=== PATIENT | male | born 1935 | race Caucasian/White ===

== ENCOUNTER 2016-09-20 10:37 | Outpatient (CLI) | payer MEDICARE, OTHER ==
[~2016-09-20] VITALS: Ht 160 cm; Wt 79.5 kg
[~2016-09-20 10:37] MED LIST: AMLO-145 PO; ASPI-664 PO; ATOR20TA38 PO; CHOL20002 PO; GABA300C16 PO; MULT-860 PO; NEBI5TAB9 PO; OXYB10TA6 PO; SITA1TAB3 PO; VALS1TAB82 PO
[2016-09-20 10:50] VITALS: BP 141/81; PULSE 69; RESP 16; Ht 160 cm; Wt 79.5 kg
--- NOTE | 2016-09-20 12:16 | CONS ---
Date/Time of Note Date/Time of Note DATE: 09/20/16 TIME: 11:25 Assessment/Plan Assessment/Plan Additional Assessment/Plan [facility] SUBSEQUENT OUTPATIENT CONSULTATION NOTE ASSESSMENT AND PLAN: A very-pleasant 81-year-old gentleman with liver mass in segment 2/3 bordering segment 4, increased in size from 3.4 to 4.9 cm in the course of approximately 11 months, and associated elevated AFP to 32 as of . 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 Had a long discussion with patient and explained reasoning behind my recommendations including surgical resection as first intervention (patient still adamantly refusing colonoscopy despite sig time spent on rational and benefits of repeat colonoscopy in this setting). Described the operation in detain including risks , benefits and alternatives and obtained patient's consent for laparoscopic, possible open partial hepatectomy. Answered all questions. The patient appeared to understand and agreed with the proposed plan of care. With above assessment, I've recommended the followin. Pre-op history and physical 2. Laparoscopic, possible open, L lateral hepatectomy with intraoperative US and possible biopsy Thank you very much for having me involved in the care of this very pleasant gentleman and I'm certainly his wonderful family. I will continue to follow him along with you as an outpatient and will be available to answer any questions at area code [phone]. Disclaimer: Inadvertent spelling and grammatical errors are likely due to EHR/ dictation software use and do not reflect on the quality of delivered patient care. PLACE [facility] SERVICE: [facility] ([facility]) at [facility] DATE OF CONSULTATION: 11/20/2016 UPDATED CLINICAL SUMMARY: The patient is a very pleasant 81-year-old gentleman , familiar to me from his initial visit with us at [facility] on 11/03/15, with multiple past medical history significant for fatty liver dz, intracerebral hemorrhage and old GA, s/p CABG, presenting with what appeared to be a surgically resectable L lateral segment 3.3 cm lesion in the liver in October 2015 , concerning for malignancy. Patient declined surgery at that time and was lost to follow up until recently. He also adamantly refused to undergo repeat colonoscopy as part of his recommended work up. Comorbidities: 1. BPH w/o urinary obstruction 2. Cardiac murmurs (systolic) 3. Decreased libido 4. DMII, w/ neuropathy 5. Fatty liver dz 6. Goiter 7. Hearing loss 8. Hyperlipidemia 9. HTN 10. Impotence 11. Intracerebral hemorrhage, 2008 12. Carotid artery occlusion w/o infarct 2001 vs. 2008 (? unclear in documentation) 13. GA/CABG 2008 14. Osteoporosis 15. Peripheral vascular dz/intermittent claudication 16. Sciatica 17. Syncope/collapse 18. Trans cereb ischemia 19. 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 HIV neg 21. Borderline obese (BMI 30.3) 22. CABG 2001 23. Prostate surgery 2006 (Dr. Santiago) 24. Cataract surgery HISTORY OF PRESENT ILLNESS: The patient is a very pleasant 81-year-old gentleman, familiar to me from his initial visit with us at [facility] on 11/03/15, with multiple past medical history significant for fatty liver dz, intracerebral hemorrhage and old GA, s/p CABG, presenting with what appeared to be a surgically resectable L lateral segment 3.3 cm lesion in the liver in October 2015, concerning for malignancy. Patient declined surgery at that time and was lost to follow up until recently. He also adamantly refused to undergo repeat colonoscopy as part of his recommended work up. After significant effort from my office, we were able to reconnect with the patient and ordered a follow up liver CT which showed above findings. During his visit with us today, patient had no major complaints. ALLERGIES: NKDA MEDICATIONS Carefully reviewed in the chart SOCIAL HISTORY: The patient lives with his partner whom he has been with in a bed bug exterminator monogamous relationship. No children. - Tob; - ETOH; - IVDU FAMILY HISTORY: Father 64, [place], mother 71, DMII & breast ca; brother 81 DII, [place]. There are no other significant medical, surgical or oncologic issues in the family as reported by the patient or reflected in the chart. REVIEW OF SYSTEMS: Other than above mentioned, there are no other major pertinent positives or pertinent negatives in an otherwise complete 14 point review of systems. PHYSICAL EXAMINATION GENERAL: The patient appears to be a very pleasant gentleman of non- descent sitting in a chair, appearing stated age, very borderline obese and otherwise in no acute distress. BMI: 31.1 (previously 30.08 October 2015) VITAL SIGNS: AVSS (please also see below) HEENT: Normocephalic and atraumatic. Extraocular muscles and hearing are grossly intact bilaterally and symmetrically. Sclerae are nonicteric. Oral cavity is clear; oral mucosa appear to be pink and moist. Dentition: fair. NECK: Supple. There is no lymphadenopathy or JVD. There is no submental, submandibular or supraclavicular lymphadenopathy. CHEST: Rises symmetrically with each breath; patient is breathing comfortably. There are no audible wheezes, rales or rhonchi on the gross exam. HEART: Pulse is regular and palpable on the right wrist. Capillary refill is normal. Carotid pulses are palpable bilaterally and symmetrically in the neck. EXTREMITIES: Lower extremities contain no pitting edema around the ankles bilaterally and symmetrically. ABDOMEN: Abdomen is soft, nontender and nondistended. No evidence of ascites, organomegaly, caput medusae, engorged subcutaneous veins, or other abnormalities. There are no peritoneal signs or guarding. SKIN: Appears to be pink and feels warm to touch. NEUROLOGIC: Awake, alert, and follows commands appropriately. LABORATORY DATA: See office chart. 08/16/16: AFP 32, CEA 0.9; CA 19-9: 4; CA 125 : 17; Cr 1.3; T Bili: 1.6; 09/20/15: Cr 1.3, LFT's nl, plt 378 IMAGING: See electronic chart. Please note that I've personally reviewed all pertinent available images and I agree in general with their overall reported findings. CT Abd/pelvis 08/24/16: 4.9 x 5.3 mass, compared to 3.4 x 3.1 cm solid mass left lat seg (seg 2); concerning for malignancy MRI 10/11/15: 3.3 cm solid mass left lat seg (seg 2); concerning for malignancy, likely metastatic per report. Does not have the classic HCC pattern; L adrenal gland adenoma noted 10mm. Consultation Date/Type/Reason Admit Date/Time Initial Consult Date Exam/Review of Systems Vital Signs Vitals Vital Signs Date Time Temp Pulse Resp B/P Pulse Ox O2 Delivery O2 Flow Rate FiO2 09/20/16 10:50 98.0 69 16 141/81 93 Room Air EFREN CORTÉS M.D. September 20, 2016 12:16
== END 2016-09-20 16:52 | disposition home or self-care (01) ==
LOC: HPC 10:37
PROVIDERS: ATTEND Transplant Surgery
DX: K76.9 Liver disease, unspecified (principal); R16.0 Hepatomegaly, not elsewhere classified; K76.0 Fatty (change of) liver, not elsewhere classified; I10 Essential (primary) hypertension; E78.5 Hyperlipidemia, unspecified; E11.40 Type 2 diabetes mellitus with diabetic neuropathy, unspecified; Z79.84 Long term (current) use of oral hypoglycemic drugs; E66.9 Obesity, unspecified; Z68.31 Body mass index [BMI] 31.0-31.9, adult; M81.0 Age-related osteoporosis without current pathological fracture; Z86.73 Personal history of transient ischemic attack (TIA), and cerebral infarction without residual deficits; I25.2 Old myocardial infarction; Z95.1 Presence of aortocoronary bypass graft
CPT/HCPCS: G0463

== ENCOUNTER 2016-10-24 05:15 | Inpatient (IN) | payer MEDICARE, OTHER ==
[~2016-10-24] VITALS: Ht 157.5 cm; Wt 76.6 kg
[2016-10-24] VITALS (39 sets, daily range): BP systolic 81–136; BP diastolic 53–79; PULSE 65–100; RESP 12–21; Ht 157.5 cm; Wt 76.6 kg
[2016-10-24] MEDS ORDERED: BUPIVACAINE 0.25%/EPI (SDV) 30 ML INJ ONE (06:49)
[2016-10-24] MEDS ORDERED: PIPER-TAZO 3.375 GM IV (PMX) 100 ML IVPB SCH (07:00)
[2016-10-24] MEDS ORDERED: D5W-0.45 NACL + KCL 20 MEQ 1,000 ML IV SCH (07:00)
--- NOTE | 2016-10-24 07:27 | HPN ---
Date/Time of Note Date/Time of Note DATE: 10/24/16 TIME: 07:26 Interval H&P Admission Note Pt. seen H&P reviewed: No system changes Pt. seen H&P reviewed. No system changes (I attest that I have seen and examined the patient and reviewed the operation in detail, as well as its risks , benefits and alternatives of the operation). I attest that I have seen and examined the patient and reviewed in detail the operation, and its associated risks, benefits and alternative. I have answered all the patient's questions to the best of my ability and the patient wishes to proceed. Please refer to rest of electronic medical record for additional updates. EFREN CORTÉS M.D. Oct 24, 2016 07:27
[2016-10-24] MEDS ORDERED: ETOMIDATE 20 MG INJ ONE (07:34)
[2016-10-24] MEDS ORDERED: SUCCINYLCHOLINE CHLORIDE 100 MG/5 ML SYG IV ONE (07:34)
[2016-10-24] MEDS ORDERED: LIDOCAINE 2% (SDV) 5 ML INJ ONE (07:34)
[2016-10-24] MEDS ORDERED: MIDAZOLAM 1 MG/ML 2 ML INJ ONE (07:35)
[2016-10-24] MEDS ORDERED: FENTAnyl 50 MCG/ML VIAL ONE (07:35)
[2016-10-24] MEDS ORDERED: PHENYLephrine (100 MCG/ML) 5ML SYG ONE (07:46)
[2016-10-24] MEDS ORDERED: ONDANSETRON 4 MG INJ ONE (08:06)
[2016-10-24] MEDS ORDERED: EPHEDrine SULFATE 50 MG/5 ML SYG ONE (08:06)
[2016-10-24] MEDS ORDERED: METOCLOPRAMIDE 10 MG INJ ONE (08:06)
[2016-10-24] MEDS ORDERED: HYDROmorphONE 2 MG/ML SYG ONE (08:41)
[2016-10-24] MEDS ORDERED: ROCURONIUM 50 MG INJ ONE (08:42)
[2016-10-24] MEDS ORDERED: PROPOFOL 20 ML ONE (08:42)
[2016-10-24] MEDS ORDERED: MEPERIDINE 25 MG INJ IV PRN (09:00)
[2016-10-24] MEDS ORDERED: DIPHENHYDRAMINE 50 MG INJ IV PRN (09:00)
[2016-10-24] MEDS ORDERED: FENTAnyl 50 MCG/ML VIAL IV PRN (09:00)
[2016-10-24] MEDS ORDERED: ONDANSETRON 4 MG INJ IV PRN (09:00)
[2016-10-24] MEDS ORDERED: PROCHLORPERAZINE 10 MG INJ IV PRN (09:00)
[2016-10-24] MEDS ORDERED: HYDROmorphONE (0.2 MG/ML) 10ML SYG IV PRN ×2 (09:00)
[2016-10-24] MEDS ORDERED: LABETALOL HCL 20MG INJ IV PRN (09:00)
[2016-10-24] MEDS ORDERED: EPHEDrine SULFATE 50 MG/5 ML SYG IV PRN (09:00)
[2016-10-24] MEDS ORDERED: hydrALAzine 20 MG INJ IV PRN (09:00)
[2016-10-24] MEDS ORDERED: INSULIN ASPART [NOVOLOG] 3 ML PEN SC ONE (10:00)
[2016-10-24] MEDS ORDERED: GLYCOPYRROLATE 0.4 MG INJ ONE (10:20)
[2016-10-24] MEDS ORDERED: NEOSTIGMINE 3 MG/3 ML SYRINGE ONE (10:20)
[2016-10-24] MEDS ORDERED: ROPIVACAINE 0.2% 20 ML VIAL ONE (10:26)
[2016-10-24] MEDS ORDERED: ESMOLOL 10 ML ONE (10:42)
[2016-10-24] MEDS ORDERED: DEXTROSE 50% 50 ML SYRINGE IV PRN ×2 (11:00)
[2016-10-24] MEDS ORDERED: GLUCOSE GEL 15 GRAM TUBE PO PRN ×2 (11:00)
[2016-10-24] MEDS ORDERED: BISACODYL 10 MG SUPP PR PRN (11:00)
[2016-10-24] MEDS ORDERED: NA PHOSPHATE/BIPHOS 133 ML ENEMA PR PRN (11:00)
[2016-10-24] MEDS ORDERED: GLUCAGON 1 MG INJ IM PRN (11:00)
[2016-10-24] MEDS ORDERED: HYDROCODONE/APAP (5/325) TAB PO PRN (11:00)
[2016-10-24] MEDS ORDERED: HYDROmorphONE 1 MG/ML SYG IV PRN (11:00)
[2016-10-24] MEDS ORDERED: GLUCOSE GEL 15 GRAM TUBE BUCCAL PRN (11:00)
[2016-10-24] MEDS ORDERED: DOCUSATE SODIUM 100 MG CAP PO PRN (11:00)
[2016-10-24 11:39] LABS: ADD SCAN DIFF NO
--- NOTE | 2016-10-24 11:43 | OPR ---
Date/Time of Note Date/Time of Note DATE: 10/24/16 TIME: 11:43 Operative Report Operative\Procedure Findings [facility] INPATIENT OPERATIVE NOTE PLACE OF SERVICE: [facility] DATE OF SURGERY: 10/24/2016 PREOPERATIVE DIAGNOSIS: 1. Liver mass in segment 2/3 bordering segment 4, increased in size from 3.4 to 4.9 cm in the course of approximately 11 months, and associated elevated AFP to 32 as of 08/16/16, all concerning for hepatocellular carcinoma 2. Cardiac murmurs (systolic) 3. Decreased libido 4. DMII, w/ neuropathy 5. Fatty liver dz 6. Goiter 7. Hearing loss 8. Hyperlipidemia 9. HTN 10. Impotence 11. Intracerebral hemorrhage, 2008 12. Carotid artery occlusion w/o infarct 2001 vs. 2008 (? unclear in documentation) 13. MS/CABG 2008 14. Osteoporosis 15. Peripheral vascular dz/intermittent claudication 16. Sciatica 17. Syncope/collapse 18. Trans cereb ischemia 19. 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 HIV neg 21. Borderline obese (BMI 30.3) 22. CABG 2001 23. Prostate surgery 2006 (Dr. Santiago) 24. Cataract surgery 25. BPH w/o urinary obstruction POSTOPERATIVE DIAGNOSIS: 1. Liver mass in segment 2/3 bordering segment 4, increased in size from 3.4 to 4.9 cm in the course of approximately 11 months, and associated elevated AFP to 32 as of 08/16/16, all concerning for hepatocellular carcinoma 2. Cardiac murmurs (systolic) 3. Decreased libido 4. DMII, w/ neuropathy 5. Fatty liver dz 6. Goiter 7. Hearing loss 8. Hyperlipidemia 9. HTN 10. Impotence 11. Intracerebral hemorrhage, 2008 12. Carotid artery occlusion w/o infarct 2001 vs. 2008 (? unclear in documentation) 13. MS/CABG 2008 14. Osteoporosis 15. Peripheral vascular dz/intermittent claudication 16. Sciatica 17. Syncope/collapse 18. Trans cereb ischemia 19. 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 HIV neg 21. Borderline obese (BMI 30.3) 22. CABG 2001 23. Prostate surgery 2006 (Dr. Santiago) 24. Cataract surgery 25. BPH w/o urinary obstruction OPERATION: 1. Laparoscopic, hand-assisted partial hepatectomy with removal of part of segment 4B and removal of segments 2 and 3 2. Intraoperative ultrasound of the liver SURGEON: Efren Cortés M.D. JUMPBASTING FACING BASTER: ALEXANDER Springer ANESTHESIA: General endotracheal tube anesthesia ANESTHESIOLOGIST: Clay Hare M.D. 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 With above assessment, I've recommended the followin. Pre-op history and physical 2. Laparoscopic, possible open, L lateral hepatectomy with intraoperative US and possible biopsy Thank you very much for having me involved in the care of this very pleasant gentleman and I'm certainly his wonderful family. I will continue to follow him along with you as an outpatient and will be available to answer any questions at [facility] code [phone]. Disclaimer: Inadvertent spelling and grammatical errors are likely due to EHR/ dictation software use and do not reflect on the quality of delivered patient care. PLACE OF SERVICE: [facility] ([facility]) at [facility] DATE OF CONSULTATION: 11/20/2016 UPDATED CLINICAL SUMMARY: The patient is a very pleasant 81-year-old gentleman , familiar to me from his initial visit with us at [facility] on 11/03/15, with multiple past medical history significant for fatty liver dz, intracerebral hemorrhage and old MS, s/p CABG, presenting with what appeared to be a surgically resectable L lateral segment 3.3 cm lesion in the liver in October 2015 , concerning for malignancy. Patient declined surgery at that time and was lost to follow up until recently. He also adamantly refused to undergo repeat colonoscopy as part of his recommended work up. Comorbidities: 1. BPH w/o urinary obstruction 2. Cardiac murmurs (systolic) 3. Decreased libido 4. DMII, w/ neuropathy 5. Fatty liver dz 6. Goiter 7. Hearing loss 8. Hyperlipidemia 9. HTN 10. Impotence 11. Intracerebral hemorrhage, 2008 12. Carotid artery occlusion w/o infarct 2001 vs. 2008 (? unclear in documentation) 13. MS/CABG 2008 14. Osteoporosis 15. Peripheral vascular dz/intermittent claudication 16. Sciatica 17. Syncope/collapse 18. Trans cereb ischemia 19. 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 HIV neg 21. Borderline obese (BMI 30.3) 22. CABG 2001 23. Prostate surgery 2006 (Dr. Santiago) 24. Cataract surgery BRIEF HISTORY: The patient is a very pleasant 81-year-old gentleman with liver mass in segment 2/3 bordering segment 4, increased in size from 3.4 to 4.9 cm in the course of approximately 11 months, and associated elevated AFP to 32 as of 08/16/16. 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 We had a long discussion with patient and explained the reasoning behind my recommendations including surgical resection as first intervention (patient still adamantly refusing colonoscopy despite sig time spent on rational and benefits of repeat colonoscopy in this setting). Described the operation in detain including risks , benefits and alternatives and obtained patient's consent for laparoscopic, possible open partial hepatectomy. Answered all questions. The patient appeared to understand and agreed with the proposed plan of care. For a detailed report of my consultation with patient and family, please refer to my separate consultation note. STATEMENT OF THE INFORMED CONSENT: The patient and family (patient's roommate was present during our initial discussion in October 2015 but not present in our subsequent discussion in September 2016) appeared to understand the risks of the operation to include, but not be limited to risk of postoperative pain and scar tissue, possible infection or bleeding requiring other interventions such as opening the wound, placement of drainage catheters, or other operative interventions; possible injury to surrounding to structures including bowel, bladder, bile duct, or blood vessels, or solid organs such as liver, kidney, or pancreas requiring other interventions or procedures; possible leakage of bile from cut surface of the liver or suture/staple lines causing significant increase in morbidity and mortality and requiring multiple interventions including but not limited to, placement of drainage catheters, imaging studies, as well as operative interventions; possible other source of sepsis such as urinary tract infections or pneumonias, or other sources of potentially life threatening problems such as deep venous thrombus formation causing pulmonary embolism, myocardial arrhythmias and infarctions, and even . We discussed the implications of having a splenectomy in the potential increased risk of complications from infection with encapsulated organisms and the steps which we would take to alleviate those (vaccinations). We also briefly discussed the potential need to receive blood products and their potential complications of blood transfusion reactions, transmission of infections, or other complications. After careful consideration of all their options, the patient and family appeared to understand and wished to proceed with surgery. DESCRIPTION OF PROCEDURE: After obtaining informed consent, the patient was brought into the operating room and was placed in a normal supine position, where successful general endotracheal tube anesthesia was performed. Intravenous access was already in place and intravenous antimicrobials had been appropriately chosen and dosed prior to the operation. The patient's abdominal skin was prepped and draped from the nipple line down to the level of the upper thighs in the usual sterile fashion. We then called a surgical time-out where the patient's identification, date of , nature of the operation, allergies , presence of intravenous antimicrobials, presence of needed equipment, and any other concerns were reviewed and agreed upon by all members of the operating room team. We then started the operation by placing a 5 mm skin incision in the left midclavicular subcostal line and placed a 5 mm [employer] trocar into the peritoneal space visualizing all the layers of the abdominal wall as we entered using direct entry technique. Note that there was no indication of any injury to underlying structures using this technique. We insufflated the abdominal cavity to a maximum pressure of 15 mmHg. We noted no injury to underlying structures. No evidence of metastatic disease present. Liver appeared to be healthy. We then placed another 5 mm trocar in the anterior axillary line on the left mid quadrants and a 12 mm trocar in between the subxiphoid area and the umbilicus in the midline, all under direct visualization and after injection of the sinus with quarter percent Marcaine with epinephrine. Without trochars in place, we had excellent visualization and access to the abdominal cavity. We then inspected the abdominal cavity again to make sure that there is no obvious evidence of metastatic disease. None was found. We then looked briefly with the ultrasound to make sure there are no obvious lesions on the right side of the liver (none were found). We had to take down the falciform ligament in order to do a formal ultrasound of the liver, and for this reason we used cautery to take down this ligament and create enough room for doing the ultrasound. Note that the left lateral coronal ligaments was also incised using cautery and this way, we completely mobilized the left lateral lobe of the liver. We then performed an intraoperative ultrasound of the liver. Intraoperative ultrasound of the liver: The following segments were visualized, and there were no lesions that were concerning for malignant disease in any of them except for when mentioned: Caudate lobe: No lesion. Segment 2: No lesion. Segment 3: Approximately 4-1/2 cm lesion that was bordering segment 3 and segment 4B with approximately 2 cm distance between the most medial border of the lesion and the course of the middle hepatic vein. Segment 4: No lesion in segment 4A and previously mentioned lesion in segment 4B. Segment 5: No lesion. Segment 6: No lesion. Segment 7: No lesion. Segment 8: No lesion. We also noted antegrade flow through the portal vein on the left and right as well as the hepatic artery on the left and right and also antegrade flow through the middle right and left hepatic veins. Biliary system was not dilated. We marked the course of the middle hepatic vein using ultrasound guidance with cautery on the surface of the liver and also marked the borders of the lesion (medial side). With this information, and given the size of the left lateral lobe of the liver , I decided to maximize the degree of safety of the operation by placing a GelPort device as follows. We created a 9 cm skin incision in the left upper quadrant subcostal area using scalpel to go through the skin and cautery to go through subcutaneous fat and fascia and then placed a GelPort device device in order to perform the laparoscopic hand-assisted operation. With our instruments and GelPort in place, we again had excellent visualization and access to the left upper quadrant. I could feel the lesion in the left lobe of the liver. This was approximately 4-5 cm in size. The rest of the liver felt pliable and no obvious signs of cirrhosis were found. The amount of liver tissue that we had to go through was reasonably thin enough that we could use a stapler to accomplish our goals. I therefore very carefully introduced a vascular (white) load of the 60 mm [employer] flex stapler and used to transect through the plane between the course of the middle hepatic vein and the medial aspect of the lesion, keeping approximately a 1-1-1/2 cm margin on the tumor side and using for loads of the the vascular (white) [employer] stapler going across the portal pedicle vessels and also the left hepatic vein without any difficulty and without any uncontrolled blood loss. The stapler fired without any technical difficulty during each of the firings and the staple rows were nice and plan nurse. Hemostasis and bile stasis was assured. Specimen was then delivered out through the HandPort with the wound protected. We did not have to use a retrieval bag and there was no rupture of the capsule of the liver. I then marked the specimen in our usual fashion ( short suture marking superior border, long suture marking lateral border, and double suture jacobs the medial border of interest). I checked the margin on the specimen using the ultrasound and I was satisfied that there was normal parenchyma around the tumor. We also had our pathologist do a gross examination of the margin and the lesion appeared to be sufficiently away from the closest margin by at least a few millimeters. Specimen was sent for permanent sections. We then ensured adequate hemostasis and there was no leakage of bile or blood from the staple lines. We then removed all our equipment from the abdominal cavity including the pneumoperitoneum and closed the 12 mm port site using a [id number] 0 Vicryl suture on a UR 6 needle and checked and the closure from inside, followed by closing the 9 cm hand port incision in layers using #1 running PDS suture and then washing the wounds with copious amounts of normal saline and reapproximating the skin using 4-0 Monocryl suture. Light dressing was then applied. At the end of the operation, both the sponge count and needle count were reportedly correct x2. The patient tolerated the procedure without any reported complications. ESTIMATED BLOOD LOSS: 30 mL BLOOD OR BLOOD PRODUCT TRANSFUSIONS: None to my knowledge. SPECIMENS: Left partial hepatectomy (part of segment 4B, and segments 2 and 3) COMPLICATIONS: None DISPOSITION: Recovery area. Disclaimer: Inadvertent spelling and grammatical errors are likely due to EHR/ dictation software use and do not reflect on the quality of delivered patient care. Also, please note that the electronic time recorded on this node does not necessarily reflect the actual time of the visit. EFREN CORTÉS M.D. Oct 24, 2016 11:43
[2016-10-24 11:44] LABS: BASOPHILS % 0.3 % (0.0-2.0); EOSINOPHILS % 0.2 % (0.0-7.0); HEMATOCRIT 38.3 % (42.0-52.0); LYMPHOCYTES # 1.1 10^3/ul (0.8-2.9); LYMPHOCYTES % 10.4 % (15.0-51.0); MEAN CORPUSCULAR HEMOGLOBIN 32.3 pg (29.0-33.0); MEAN CORPUSCULAR HGB CONC 36.6 g/dl (32.0-37.0); MEAN CORPUSCULAR VOLUME 88.2 fl (82.0-101.0); MEAN PLATELET VOLUME 9.4 fl (7.4-10.4); MONOCYTE # 0.8 10^3/ul (0.3-0.9); MONOCYTES % 7.7 % (0.0-11.0); NEUTROPHIL # 8.5 10^3/ul (1.6-7.5); NEUTROPHILS % 80.8 % (39.0-77.0); PLATELET COUNT 254 10^3/UL (140-415); RED BLOOD COUNT 4.34 10^6/ul (4.70-6.10); RED CELL DISTRIBUTION WIDTH 12.7 % (11.5-14.5); WHITE BLOOD COUNT 10.5 10^3/ul (4.8-10.8)
[2016-10-24 12:04] LABS: ALBUMIN 4.4 g/dl (3.3-4.9); ALBUMIN/GLOBULIN RATIO 1.57; BILIRUBIN,INDIRECT 1.2 mg/dl (0-1.1); BILIRUBIN,TOTAL 1.2 mg/dl (0.2-1.3); TOTAL PROTEIN 7.2 g/dl (6.1-8.1)
[2016-10-24 12:05] LABS: INR 0.98; MAGNESIUM 1.3 mg/dl (1.7-2.5); PHOSPHORUS 4.2 mg/dl (2.5-4.9)
[2016-10-24 12:06] LABS: PARTIAL THROMBOPLASTIN TIME 26.4 Sec (25.0-35.0)
[2016-10-24 12:07] LABS: CALCIUM 9.6 mg/dl (8.4-10.2); CREATININE 1.11 mg/dl (0.61-1.24); POTASSIUM 3.6 mmol/L (3.5-5.1)
[2016-10-24] MEDS: D5W-0.45 NACL + KCL 20 MEQ 1,000 ML IV SCH ×2 (15:39→20:57)
--- NOTE | 2016-10-24 18:54 | CONS ---
Date/Time of Note Date/Time of Note DATE: 10/24/16 TIME: 18:54 Assessment/Plan Assessment/Plan Additional Assessment/Plan IMPRESSION 1. 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 CAD with CABG 3. Type II DM 4. hx of Dyslipidemia 5. Hx of PVD 6. Hx of BPH, with hx of prostate surgery PLAN Will adjust pain meds for better control will start on anti-tussive given cough is dry. breathing treatment as needed. additional w/u as needed cont current meds post-op surgical mgmt per Dr. douglas Consultation Date/Type/Reason Admit Date/Time Oct 24, 2016 at 05:15 Hx of Present Illness This is an 81 yo male with hx of CAD with CABG, DM, DL, PVD, BPH. Patient also has a hx of liver mass, likely HCC and is now s/p Laparoscopic partial hepatectomy. Consult was placed for medical mgmt. He is currently in stable condition. His complaints at this time are abd pain and dry cough. Denied chest pain, SOB, fever/chills, N/V. Last BM is 2 days ago on Sunday. Abd is soft and is non-distended and laproscopic surgical insertion site are clean with no erythema or sign of infection. . Past Medical History 1. 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 CAD with CABG 3. Type II DM 4. hx of Dyslipidemia 5. Hx of PVD 6. Hx of BPH, with hx of prostate surgery Social History Smoking Status: Never smoker Exam/Review of Systems Vital Signs Vitals Vital Signs Date Time Temp Pulse Resp B/P Pulse Ox O2 Delivery O2 Flow Rate FiO2 10/24/16 17:18 98.9 92 20 125/60 93 10/24/16 16:47 Nasal Cannula 10/24/16 11:50 2.0 Exam Constitutional: alert, oriented, well developed Head: atraumatic, normocephalic Eyes: EOMI, PERRL Respiratory: clear to auscultation, normal air movement Cardiovascular: nl pulses, regular rate and rhythm Gastrointestinal: other (non-distended, mildly tender to deep palpation), soft , surgical scars Extremities: normal pulses Results Result Diagram: 10/24/16 1137 10/24/16 1137 Results 24 hrs Laboratory Tests Test 10/24/16 06:02 6/20/17 11:14 10/24/16 11:37 10/24/16 16:55 Bedside Glucose 155 207 179 White Blood Count 10.5 Red Blood Count 4.34 L Hemoglobin 14.0 Hematocrit 38.3 L Mean Corpuscular Volume 88.2 Mean Corpuscular Hemoglobin 32.3 Mean Corpuscular Hemoglobin Concent 36.6 Red Cell Distribution Width 12.7 Platelet Count 254 Mean Platelet Volume 9.4 Neutrophils % 80.8 H Lymphocytes % 10.4 L Monocytes % 7.7 Eosinophils % 0.2 Basophils % 0.3 Nucleated Red Blood Cells % 0.0 Neutrophils # 8.5 H Lymphocytes # 1.1 Monocytes # 0.8 Eosinophils # 0.0 Basophils # 0.0 Nucleated Red Blood Cells # 0.0 Prothrombin Time 13.0 Prothrombin Time Ratio 1.0 INR International Normalized Ratio 0.98 Activated Partial Thromboplast Time 26.4 Sodium Level 136 Potassium Level 3.6 Chloride Level 99 Carbon Dioxide Level 23 Anion Gap 18 H Blood Urea Nitrogen 11 Creatinine 1.11 Glucose Level 199 Calcium Level 9.5 Phosphorus Level 4.2 Magnesium Level 1.3 L Total Bilirubin 1.2 Direct Bilirubin 0.00 Indirect Bilirubin 1.2 H Aspartate Amino Transf (AST/SGOT) 108 H Alanine Aminotransferase (ALT/SGPT) 121 H Alkaline Phosphatase 57 Total Protein 7.2 Albumin 4.4 Globulin 2.80 Albumin/Globulin Ratio 1.57 Medications Medications Current Medications Miscellaneous Information 1 ea NOTE XX ; Start 10/24/16 at 11:00 Glucose (Glutose) 15 gm Q15M PRN PO DECREASED GLUCOSE; Start 10/24/16 at 11:00 Glucose (Glutose) 22.5 gm Q15M PRN PO DECREASED GLUCOSE; Start 10/24/16 at 11: 00 Dextrose (D50w Syringe) 25 ml Q15M PRN IV DECREASED GLUCOSE; Start 10/24/16 at 11:00 Dextrose (D50w Syringe) 50 ml Q15M PRN IV DECREASED GLUCOSE; Start 10/24/16 at 11:00 Glucagon (Glucagen) 1 mg Q15M PRN IM DECREASED GLUCOSE; Start 10/24/16 at 11:00 Glucose 15 gm 15 gm Q15M PRN BUCCAL DECREASED GLUCOSE; Start 10/24/16 at 11:00 Potassium Chloride/Dextrose/ Sod Cl (D5-1/2ns + KCl 20 Meq) 1,000 ml @ 100 mls/ hr Q10H IV Last administered on 10/24/16t 15:39; Admin Dose 100 MLS/HR; Start 10/24/16 at 10:57 Acetaminophen/ Hydrocodone Bitart ([place] (5/325)) 1 tab Q4H PRN PO PAIN LEVEL 4 -7; Start 10/24/16 at 11:00 Acetaminophen/ Hydrocodone Bitart ([place] (5/325)) 2 tab Q4H PRN PO PAIN LEVEL 7 -10; Start 10/24/16 at 11:00 Hydromorphone HCl (Dilaudid) 0.5 mg Q2H PRN IV PAIN; Start 10/24/16 at 11:00 Hydromorphone HCl (Dilaudid) 1 mg Q2H PRN IV PAIN; Start 10/24/16 at 11:00 Docusate Sodium (Colace) 100 mg BID PRN PO CONSTIPATION; Start 10/24/16 at 11: 00 Bisacodyl (Dulcolax Supp) 10 mg BID PRN [place] CONSTIPATION; Start 10/24/16 at 11: 00 Sodium Biphosphate/ Sodium Phosphate (Fleet Enema) 133 ml BID PRN [place] CONSTIPATION; Start 10/24/16 at 11:00 Famotidine (Pepcid Iv) 20 mg DAILY IV ; Start 10/25/16 at 09:00 Enoxaparin Sodium (Lovenox) 40 mg DAILY SC ; Start 10/25/16 at 09:00 ANGÉLICA BARTHOLOMEW MD Oct 24, 2016 18:54
[2016-10-24] MEDS: HYDROCODONE/APAP (5/325) TAB PO PRN (19:49)
[2016-10-24] MEDS ORDERED: morphine 4 MG/ML VIAL IV PRN (20:30)
[2016-10-24] MEDS ORDERED: LORAZEPAM 1 MG TAB PO PRN (20:30)
[2016-10-25] MEDS: D5W-0.45 NACL + KCL 20 MEQ 1,000 ML IV SCH ×2 (01:20→16:04)
[2016-10-25 06:03] LABS: ADD SCAN DIFF NO
[2016-10-25 06:23] LABS: BASOPHILS % 0.1 % (0.0-2.0); EOSINOPHILS % 0.2 % (0.0-7.0); HEMATOCRIT 36.6 % (42.0-52.0); HEMOGLOBIN 12.9 g/dl (14.0-18.0); LYMPHOCYTES # 1.1 10^3/ul (0.8-2.9); MEAN CORPUSCULAR HEMOGLOBIN 31.9 pg (29.0-33.0); MEAN CORPUSCULAR HGB CONC 35.2 g/dl (32.0-37.0); MEAN CORPUSCULAR VOLUME 90.4 fl (82.0-101.0); MONOCYTE # 1.1 10^3/ul (0.3-0.9); MONOCYTES % 11.2 % (0.0-11.0); NEUTROPHIL # 7.5 10^3/ul (1.6-7.5); PLATELET COUNT 210 10^3/UL (140-415); RED BLOOD COUNT 4.05 10^6/ul (4.70-6.10); RED CELL DISTRIBUTION WIDTH 13.2 % (11.5-14.5); WHITE BLOOD COUNT 9.7 10^3/ul (4.8-10.8)
[2016-10-25 06:43] LABS: INR 1.17; PARTIAL THROMBOPLASTIN TIME 28.4 Sec (25.0-35.0); PT RATIO 1.2
[2016-10-25 07:08] LABS: ALBUMIN 4.1 g/dl (3.3-4.9); ALBUMIN/GLOBULIN RATIO 2.15; BILIRUBIN,INDIRECT 1.9 mg/dl (0-1.1); BILIRUBIN,TOTAL 1.9 mg/dl (0.2-1.3); CREATININE 0.97 mg/dl (0.61-1.24); MAGNESIUM 1.3 mg/dl (1.7-2.5); PHOSPHORUS 2.8 mg/dl (2.5-4.9); POTASSIUM 4.1 mmol/L (3.5-5.1)
[2016-10-25 08:03] VITALS: BP 138/72; RESP 18
[2016-10-25] MEDS: HYDROmorphONE 1 MG/ML SYG IV PRN ×2 (08:32→12:44)
[2016-10-25] MEDS ORDERED: FAMOTIDINE 20 MG INJ IV SCH (09:00)
[2016-10-25] MEDS ORDERED: SOD CHLORIDE 0.9% 250 ML IV ONE (09:30)
[2016-10-25] MEDS: ENOXAPARIN 40 MG/0.4 ML SYG SC SCH (10:48)
[2016-10-25] MEDS ORDERED: MAGNESIUM SULFATE 3 GM in SOD CHLORIDE 0.9% 100 ML IVPB ONE (11:00)
[2016-10-25] MEDS: INSULIN ASPART [NOVOLOG] 3 ML PEN SC SCH ×3 (13:00→20:06)
[2016-10-25] MEDS: HYDROCODONE/APAP (5/325) TAB PO PRN (15:41)
[2016-10-25 19:29] VITALS: BP 157/74; RESP 20
[2016-10-25] MEDS ORDERED: INSULIN GLARGINE [LANtus] 3 ML PEN SC SCH (20:00)
--- NOTE | 2016-10-25 23:06 | PN ---
Date/Time of Note Date/Time of Note DATE: 10/25/16 TIME: 22:45 Assessment/Plan Lines/Catheters IV Catheter Type (from Nrs): Saline Lock Gonzalez in Place (from Nrs): Yes Assessment/Plan Assessment/Plan [facility] Progress Note Date of Service: 10/25/16 Today's Impression & Plan: Overall stable and relatively doing well post op without major issues. No major wound problems. Rise in LFT's within expectation. Will need further monitoring. No indication for acute surgical intervention. With above assessment, I've recommended the following for today: 1. Oral conversion 2. Increase activity 3. Increase ICS 4. Saline lock IV 5. Labs in am Thank you again for your great care of this very pleasant patient and wonderful family. If there are any questions, please feel free to call me at [phone]. TOTAL VISIT TIME: 20 minutes of which more than half was spent in [id number] discussion with the patient, possibly including family, as well as coordination of care between multiple physicians and providers. Disclaimer: Inadvertent spelling or grammatical errors are likely due to EHR/ dictation software use and do not reflect on the overall quality of patient care. Updated Clinical Summary: The patient is a very pleasant 81-year-old gentleman, familiar to me from his initial visit with us at [facility] on 11/03/15, with multiple past medical history significant for fatty liver dz, intracerebral hemorrhage and old [place], s/p CABG, presenting with what appeared to be a surgically resectable L lateral segment 3.3 cm lesion in the liver in October 2015, concerning for malignancy. Patient declined surgery at that time and was lost to follow up until recently. He also adamantly refused to undergo repeat colonoscopy as part of his recommended work up. 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 Comorbidities: 1. BPH w/o urinary obstruction 2. Cardiac murmurs (systolic) 3. Decreased libido 4. DMII, w/ neuropathy 5. Fatty liver dz 6. Goiter 7. Hearing loss 8. Hyperlipidemia 9. HTN 10. Impotence 11. Intracerebral hemorrhage, 2008 12. Carotid artery occlusion w/o infarct 2001 vs. 2008 (? unclear in documentation) 13. [place]/CABG 2008 14. Osteoporosis 15. Peripheral vascular dz/intermittent claudication 16. Sciatica 17. Syncope/collapse 18. Trans cereb ischemia 19. 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 HIV neg 21. Borderline obese (BMI 30.3) 22. CABG 2001 23. Prostate surgery 2006 (Dr. Santiago) 24. Cataract surgery Subjective: No major events or complaints; no abd pain and under control with medications; no n/v/d; no sob or cp; + flatus; + BM and normal; + activity Objective: Vitals: See below Exam: GENERAL: On exam, the patient was laying in bed and appeared to be comfortable and in no acute distress. ABDOMEN: Soft, nontender and nondistended. Incision dressings are clean, dry and intact without any evidence of obvious underlying erythema, edema, discharge , or hernia. There are no peritoneal signs or guarding. SKIN: Skin appears to be pink and feels warm to touch. NEUROLOGIC: Patient is awake, alert, and follows commands appropriately. Exam/Review of Systems Vital Signs Vitals Vital Signs Date Time Temp Pulse Resp B/P Pulse Ox O2 Delivery O2 Flow Rate FiO2 10/25/16 19:29 98.2 80 20 157/74 93 10/24/16 19:56 Nasal Cannula 2.0 Intake and Output 10/24/16 10/24/16 10/25/16 15:00 23:00 07:00 Intake Total 1720 ml 360 ml 1940 ml Output Total 380 ml 300 ml 520 ml Balance 1340 ml 60 ml 1420 ml Results Result Diagram: 10/25/16 0520 10/25/16 0520 EFREN CORTÉS M.D. Oct 25, 2016 23:06
[2016-10-26] MEDS ORDERED: ACCU-CHEK XX SCH (02:00)
[2016-10-26 06:00] LABS: ADD SCAN DIFF NO
[2016-10-26 06:13] LABS: BASOPHILS % 0.2 % (0.0-2.0); EOSINOPHILS # 0.1 10^3/ul (0.0-0.5); EOSINOPHILS % 0.6 % (0.0-7.0); HEMATOCRIT 34.7 % (42.0-52.0); HEMOGLOBIN 12.2 g/dl (14.0-18.0); LYMPHOCYTES # 0.9 10^3/ul (0.8-2.9); LYMPHOCYTES % 8.6 % (15.0-51.0); MEAN CORPUSCULAR HEMOGLOBIN 31.6 pg (29.0-33.0); MEAN CORPUSCULAR HGB CONC 35.2 g/dl (32.0-37.0); MEAN CORPUSCULAR VOLUME 89.9 fl (82.0-101.0); MEAN PLATELET VOLUME 10.1 fl (7.4-10.4); MONOCYTES % 10.4 % (0.0-11.0); NEUTROPHIL # 7.9 10^3/ul (1.6-7.5); NEUTROPHILS % 79.5 % (39.0-77.0); PLATELET COUNT 171 10^3/UL (140-415); RED BLOOD COUNT 3.86 10^6/ul (4.70-6.10); RED CELL DISTRIBUTION WIDTH 12.9 % (11.5-14.5)
[2016-10-26 06:33] LABS: INR 1.21; PROTIME 15.4 Sec (12.2-14.2); PT RATIO 1.2
[2016-10-26 06:36] LABS: CALCIUM 8.7 mg/dl (8.4-10.2); PHOSPHORUS 1.9 mg/dl (2.5-4.9)
[2016-10-26 06:44] LABS: ALBUMIN 3.7 g/dl (3.3-4.9); ALBUMIN/GLOBULIN RATIO 1.42; BILIRUBIN,INDIRECT 3.1 mg/dl (0-1.1); BILIRUBIN,TOTAL 3.1 mg/dl (0.2-1.3); CALCIUM 8.6 mg/dl (8.4-10.2); CREATININE 0.86 mg/dl (0.61-1.24); POTASSIUM 4.4 mmol/L (3.5-5.1); TOTAL PROTEIN 6.3 g/dl (6.1-8.1)
[2016-10-26 07:48] VITALS: BP 155/84; RESP 16
[2016-10-26] MEDS: FUROSEMIDE 20 MG INJ IV SCH ×2 (07:59→12:07)
[2016-10-26] MEDS: ENOXAPARIN 40 MG/0.4 ML SYG SC SCH (08:08)
[2016-10-26] MEDS: INSULIN ASPART [NOVOLOG] 3 ML PEN SC SCH ×2 (08:15→12:07)
--- NOTE | 2016-10-26 10:22 | PN ---
Date/Time of Note Date/Time of Note DATE: 10/25/16 TIME: 10:04 Assessment/Plan Lines/Catheters IV Catheter Type (from Nrs): Saline Lock Urinary Cath still in place: Yes Assessment/Plan Chief Complaint/Hosp Course Problems: Assessment/Plan IMPRESSION 1. 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 CAD with CABG 3. Type II DM 4. hx of Dyslipidemia 5. Hx of PVD 6. Hx of BPH, with hx of prostate surgery PLAN Cont pain meds as needed. Continue anti-tussive as needed as long as cough is dry. breathing treatment as needed. cont current meds post-op surgical mgmt per Dr. douglas Exam/Review of Systems Vital Signs Vitals Vital Signs Date Time Temp Pulse Resp B/P Pulse Ox O2 Delivery O2 Flow Rate FiO2 10/26/16 07:48 98.9 77 16 155/84 98 10/24/16 19:56 Nasal Cannula 2.0 Intake and Output 10/25/16 10/25/16 10/26/16 15:00 23:00 07:00 Intake Total 250 ml 2406 ml 1060 ml Output Total 625 ml 500 ml Balance 250 ml 1781 ml 560 ml Exam Constitutional: alert, oriented, well developed Head: atraumatic, normocephalic Eyes: EOMI, PERRL Respiratory: clear to auscultation, normal air movement Cardiovascular: nl pulses, regular rate and rhythm Gastrointestinal: other (non-distended, mildly tender to deep palpation), soft , surgical scars Extremities: normal pulses Results Result Diagram: 10/26/16 0502 10/26/16 0502 Results 24 hrs Laboratory Tests Test 10/25/16 12:38 10/25/16 18:13 10/25/16 20:05 10/26/16 05:02 Bedside Glucose 156 157 167 White Blood Count 10.0 Red Blood Count 3.86 L Hemoglobin 12.2 L Hematocrit 34.7 L Mean Corpuscular Volume 89.9 Mean Corpuscular Hemoglobin 31.6 Mean Corpuscular Hemoglobin Concent 35.2 Red Cell Distribution Width 12.9 Platelet Count 171 Mean Platelet Volume 10.1 Neutrophils % 79.5 H Lymphocytes % 8.6 L Monocytes % 10.4 Eosinophils % 0.6 Basophils % 0.2 Nucleated Red Blood Cells % 0.0 Neutrophils # 7.9 H Lymphocytes # 0.9 Monocytes # 1.0 H Eosinophils # 0.1 Basophils # 0.0 Nucleated Red Blood Cells # 0.0 Prothrombin Time 15.4 H Prothrombin Time Ratio 1.2 INR International Normalized Ratio 1.21 Activated Partial Thromboplast Time 31.0 Sodium Level 131 L Potassium Level 4.4 Chloride Level 98 Carbon Dioxide Level 26 Anion Gap 11 Blood Urea Nitrogen 7 Creatinine 0.86 Glucose Level 140 Lactic Acid Level 1.3 Calcium Level 8.6 Phosphorus Level 1.9 L Magnesium Level 2.0 Total Bilirubin 3.1 H Direct Bilirubin 0.00 Indirect Bilirubin 3.1 H Aspartate Amino Transf (AST/SGOT) 366 H Alanine Aminotransferase (ALT/SGPT) 591 H Alkaline Phosphatase 55 B-Type Natriuretic Peptide 1250 H Total Protein 6.3 Albumin 3.7 Globulin 2.60 Albumin/Globulin Ratio 1.42 Test 10/26/16 08:01 Bedside Glucose 135 Medications Medications Current Medications Miscellaneous Information 1 ea NOTE XX ; Start 10/24/16 at 11:00 Glucose (Glutose) 15 gm Q15M PRN PO DECREASED GLUCOSE; Start 10/24/16 at 11:00 Glucose (Glutose) 22.5 gm Q15M PRN PO DECREASED GLUCOSE; Start 10/24/16 at 11: 00 Dextrose (D50w Syringe) 25 ml Q15M PRN IV DECREASED GLUCOSE; Start 10/24/16 at 11:00 Dextrose (D50w Syringe) 50 ml Q15M PRN IV DECREASED GLUCOSE; Start 10/24/16 at 11:00 Glucagon (Glucagen) 1 mg Q15M PRN IM DECREASED GLUCOSE; Start 10/24/16 at 11:00 Glucose (Glutose) 15 gm Q15M PRN BUCCAL DECREASED GLUCOSE; Start 10/24/16 at 11 :00 Acetaminophen/ Hydrocodone Bitart ([place] (5/325)) 1 tab Q4H PRN PO PAIN LEVEL 4 -7 Last administered on 10/25/16 15:41; Admin Dose 1 TAB; Start 10/24/16 at 11: 00 Acetaminophen/ Hydrocodone Bitart ([place] (5/325)) 2 tab Q4H PRN PO PAIN LEVEL 7 -10 Last administered on 10/25/16 20:37; Admin Dose 2 TAB; Start 10/24/16 at 11 :00 Hydromorphone HCl (Dilaudid) 0.5 mg Q2H PRN IV PAIN; Start 10/24/16 at 11:00 Hydromorphone HCl (Dilaudid) 1 mg Q2H PRN IV PAIN Last administered on 12:44; Admin Dose 1 MG; Start 10/24/16 at 11:00 Docusate Sodium (Colace) 100 mg BID PRN PO CONSTIPATION; Start 10/24/16 at 11: 00 Bisacodyl (Dulcolax Supp) 10 mg BID PRN [place] CONSTIPATION; Start 10/24/16 at 11: 00 Sodium Biphosphate/ Sodium Phosphate (Fleet Enema) 133 ml BID PRN [place] CONSTIPATION; Start 10/24/16 at 11:00 Enoxaparin Sodium (Lovenox) 40 mg DAILY SC Last administered on 10/26/16 08:08 ; Admin Dose 40 MG; Start 10/25/16 at 09:00 Morphine Sulfate (morphine) 4 mg Q3H PRN IV pain; Start 10/24/16 at 20:30 Lorazepam (Ativan) 1 mg Q4H PRN PO anxiety; Start 10/24/16 at 20:30 Insulin Glargine (Lantus) 10 unit DAILY@20 SC Last administered on 10/25/16 20 :11; Admin Dose 10 UNIT; Start 10/25/16 at 20:00 Diagnostic Test (Pha) (Accu-Chek) 1 ea 02 XX ; Start 10/26/16 at 02:00 Famotidine (Pepcid) 40 mg HS PO ; Start 10/26/16 at 21:00 Furosemide (Lasix) 20 mg Q6 IV Last administered on 10/26/16 07:59; Admin Dose 20 MG; Start 10/26/16 at 08:00; Stop 10/27/16 at 00:01 ANGÉLICA BARTHOLOMEW MD Oct 26, 2016 10:14
[2016-10-26] MEDS ORDERED: morphine (ER) 30 MG TAB PO SCH (10:30)
[2016-10-26] MEDS ORDERED: NEUTRA-PHOS 250 MG PACKET PO SCH (10:30)
[2016-10-26] MEDS ORDERED: hydrALAzine 20 MG INJ IV PRN (10:30)
[2016-10-26] MEDS ORDERED: GUAIFENESIN 20 MG/ML 5ML CUP PO PRN (10:30)
--- NOTE | 2016-10-26 11:54 | DS ---
Date/Time of Note Date/Time of Note DATE: 10/26/16 TIME: 11:49 Discharge Summary Admission/Discharge Info Admit Date/Time Oct 24, 2016 at 05:15 Discharge Date/Time Discharge Diagnosis: Left lobe of liver hepatocellular carcinoma, s/p resection Patient Condition: Good Consults Internal medicine Procedures 1. Left lobe of liver hepatocellular carcinoma, s/p laparoscopic, hand-assisted (hybrid) partial hepatectomy with removal of part of segment 4B and removal of segments 2 and 3 with assistance of intraoperative ultrasound of the liver at [facility] 10/26/16. Hx of Present Illness Updated Clinical Summary: The patient is a very pleasant 81-year-old gentleman, familiar to me from his initial visit with us at [facility] on 11/03/15, with multiple past medical history significant for fatty liver dz, intracerebral hemorrhage and old [place], s/p CABG, presenting with what appeared to be a surgically resectable L lateral segment 3.3 cm lesion in the liver in October 2015, concerning for malignancy. Patient declined surgery at that time and was lost to follow up until recently. He also adamantly refused to undergo repeat colonoscopy as part of his recommended work up. 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 Comorbidities: 1. Left lobe of liver hepatocellular carcinoma, s/p laparoscopic, hand-assisted (hybrid) partial hepatectomy with removal of part of segment 4B and removal of segments 2 and 3 with assistance of intraoperative ultrasound of the liver at [facility] 10/26/16. 2. Cardiac murmurs (systolic) 3. Decreased libido 4. DMII, w/ neuropathy 5. Fatty liver dz 6. Goiter 7. Hearing loss 8. Hyperlipidemia 9. HTN 10. Impotence 11. Intracerebral hemorrhage, 2008 12. Carotid artery occlusion w/o infarct 2001 vs. 2008 (? unclear in documentation) 13. [place]/CABG 2008 14. Osteoporosis 15. Peripheral vascular dz/intermittent claudication 16. Sciatica 17. Syncope/collapse 18. Trans cereb ischemia 19. 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 HIV neg 21. Borderline obese (BMI 30.3) 22. CABG 2001 23. Prostate surgery 2006 (Dr. Navon) 24. Cataract surgery 25. BPH w/o urinary obstruction Hospital Course Patient underwent an otherwise uncomplicated partial hepatectomy on 10/24/16. For a detailed report, please see my op note from same date. Post op, patient did very well without any evidence for major post-operative complication or wound problems. By the time of discharge, patient was tolerating a regular diet , had adequate pain control on oral pain medications, had shown return of bowel activity and was clinically stable. He is therefore being discharged today. In addition to his home meds, I wrote him for: 1. Alpine (5/325) 45 tabs and no refill 2. Colace 25 and 2 3. Dulcolax 10 and 3 Home Meds Reported Medications Cholecalciferol (Vitamin D3) (Vitamin D-3) 2,000 Unit Tablet, 2000 UNIT PO, TAB 11/03/15 Oxybutynin Chloride* (Ditropan* XL) 10 Mg Tab.er.24, 10 MG PO DAILY, TAB.SA 11/03/15 Gabapentin* (Gabapentin*) 300 Mg Capsule, 300 MG PO five times a day, #60 CAP 11/03/15 Mu-Vits-Min Th/Lycopene/Lutein (CENTRUM SILVER TABLET) 1 Each Tablet, 1 EACH PO , TAB 11/03/15 Amlodipine Besylate* (Amlodipine Besylate*) 5 Mg Tablet, 5 MG PO DAILY, #30 TAB 11/03/15 Sitagliptin Phos-Metformin Hcl (Janumet) 50-500 Mg Tablet, 1 TAB PO WITH BREAKFAST DINNE, #60 TAB 11/03/15 Atorvastatin Calcium* (Atorvastatin Calcium*) 20 Mg Tablet, 20 MG PO QHS, #30 TAB 11/03/15 Nebivolol* (Bystolic*) 5 Mg Tab, 5 MG PO DAILY, #30 TAB 11/03/15 Valsartan-Hydrochlorothiazide (Valsartan-HCTZ) 320-25 Mg Tablet, 1 TAB PO DAILY , #30 TAB 11/03/15 Aspirin (Low Dose Aspirin) 81 Mg Tablet.dr, 81 MG PO DAILY, #30 TAB 11/03/15 Follow-up Plan Please call [phone] if any of fever, nausea, vomiting, discharge from wound , wound redness, increase or sudden pain, blood in stool or vomit, or any other unusual signs or symptoms. Also, please call the same number in a few days to schedule an appointment for your follow up visit. Patient may remove dressings tomorrow. Showers OK starting tomorrow. No swimming , hot tub or bath for 2 weeks. No lifting more than 25 lbs for 8 weeks. Primary Care Provider Not On Staff Doctor Time spent on discharge: > 30 minutes Pending Labs Laboratory Tests Test 10/25/16 12:38 10/25/16 18:13 10/25/16 20:05 10/26/16 05:02 Bedside Glucose 156mg/dL (70-220) 157mg/dL (70-220) 167mg/dL (70-220) White Blood Count 10.010^3/ul (4.8-10.8) Red Blood Count 3.8610^6/ul (4.70-6.10) Hemoglobin 12.2g/dl (14.0-18.0) Hematocrit 34.7% (42.0-52.0) Mean Corpuscular Volume 89.9fl (82.0-101.0) Mean Corpuscular Hemoglobin 31.6pg (29.0-33.0) Mean Corpuscular Hemoglobin Concent 35.2g/dl (32.0-37.0) Red Cell Distribution Width 12.9% (11.5-14.5) Platelet Count 41323^3/UL (140-415) Mean Platelet Volume 10.1fl (7.4-10.4) Neutrophils % 79.5% (39.0-77.0) Lymphocytes % 8.6% (15.0-51.0) Monocytes % 10.4% (0.0-11.0) Eosinophils % 0.6% (0.0-7.0) Basophils % 0.2% (0.0-2.0) Nucleated Red Blood Cells % 0.0/100WBC (0.0-0.0) Neutrophils # 7.910^3/ul (1.6-7.5) Lymphocytes # 0.910^3/ul (0.8-2.9) Monocytes # 1.010^3/ul (0.3-0.9) Eosinophils # 0.110^3/ul (0.0-0.5) Basophils # 0.010^3/ul (0.0-0.1) Nucleated Red Blood Cells # 0.010^3/ul (0.0-0.0) Prothrombin Time 15.4Sec (12.2-14.2) Prothrombin Time Ratio 1.2 INR International Normalized Ratio 1.21 Activated Partial Thromboplast Time 31.0Sec (25.0-35.0) Sodium Level 131mmol/L (135-144) Potassium Level 4.4mmol/L (3.5-5.1) Chloride Level 98mmol/L (97-110) Carbon Dioxide Level 26mmol/L (21-31) Anion Gap 11 (8-16) Blood Urea Nitrogen 7mg/dl (7-20) Creatinine 0.86mg/dl (0.61-1.24) Glucose Level 140mg/dl (70-220) Lactic Acid Level 1.3mmol/L (0.5-2.2) Calcium Level 8.6mg/dl (8.4-10.2) Phosphorus Level 1.9mg/dl (2.5-4.9) Magnesium Level 2.0mg/dl (1.7-2.5) Total Bilirubin 3.1mg/dl (0.2-1.3) Direct Bilirubin 0.00mg/dl (0.00-0.20) Indirect Bilirubin 3.1mg/dl (0-1.1) Aspartate Amino Transf (AST/SGOT) 366IU/L (15-46) Alanine Aminotransferase (ALT/SGPT) 591IU/L (13-69) Alkaline Phosphatase 55IU/L (42-121) B-Type Natriuretic Peptide 1250PG/ML (0-450) Total Protein 6.3g/dl (6.1-8.1) Albumin 3.7g/dl (3.3-4.9) Globulin 2.60g/dl (1.3-3.2) Albumin/Globulin Ratio 1.42 Test 10/26/16 08:01 Bedside Glucose 135mg/dL (70-220) EFREN CORTÉS M.D. Oct 26, 2016 11:54
--- NOTE | 2016-10-26 11:55 | PDOCDIS ---
Discharge Instructions DIAGNOSIS Discharge Diagnosis 1. Left lobe of liver hepatocellular carcinoma, s/p laparoscopic, hand-assisted (hybrid) partial hepatectomy with removal of part of segment 4B and removal of segments 2 and 3 with assistance of intraoperative ultrasound of the liver at [facility] 10/26/16. 2. Cardiac murmurs (systolic) 3. Decreased libido 4. DMII, w/ neuropathy 5. Fatty liver dz 6. Goiter 7. Hearing loss 8. Hyperlipidemia 9. HTN 10. Impotence 11. Intracerebral hemorrhage, 2008 12. Carotid artery occlusion w/o infarct 2001 vs. 2008 (? unclear in documentation) 13. [place]/CABG 2008 14. Osteoporosis 15. Peripheral vascular dz/intermittent claudication 16. Sciatica 17. Syncope/collapse 18. Trans cereb ischemia 19. 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 HIV neg 21. Borderline obese (BMI 30.3) 22. CABG 2001 23. Prostate surgery 2006 (Dr. Santiago) 24. Cataract surgery 25. BPH w/o urinary obstruction CONDITION Patient Condition: Good HOME CARE INSTRUCTIONS: Diet Instructions: Regular ACTIVITY: Activity Restrictions: Avoid heavy lifting Do not Drive Do not operate Machinery Bathing Restrictions: Shower OTHER ORDERS: Other Orders: Please call [phone] if any of fever, nausea, vomiting, discharge from wound , wound redness, increase or sudden pain, blood in stool or vomit, or any other unusual signs or symptoms. Also, please call the same number in a few days to schedule an appointment for your follow up visit. Patient may remove dressings tomorrow. Showers OK starting tomorrow. No swimming , hot tub or bath for 2 weeks. No lifting more than 25 lbs for 8 weeks. EFREN CORTÉS M.D. Oct 26, 2016 11:55
[2016-10-26] MEDS ORDERED: BISA10SU75 PR (11:58)
[2016-10-26] MEDS ORDERED: HYDR-3498 PO (11:58)
[2016-10-26] MEDS ORDERED: DOCU-216 PO (11:58)
[2016-10-26 12:08] VITALS: BP_SYST 65; PULSE 71
[2016-10-26] MEDS ORDERED: FAMOTIDINE 20 MG TAB PO SCH (21:00)
== END 2016-10-26 14:05 | disposition home or self-care (01) | DRG 407 ==
LOC: REC 05:15 → MS2 17:05
PROVIDERS: ADMIT Transplant Surgery; ATTEND Transplant Surgery
PROC: 0FB24ZZ Excision of Left Lobe Liver, Percutaneous Endoscopic Approach (ICD-10-PCS; principal; 2016-10-24 07:30)
DX: C22.0 Liver cell carcinoma (principal); E11.40 Type 2 diabetes mellitus with diabetic neuropathy, unspecified; E11.51 Type 2 diabetes mellitus with diabetic peripheral angiopathy without gangrene; E04.9 Nontoxic goiter, unspecified; K76.0 Fatty (change of) liver, not elsewhere classified; E78.5 Hyperlipidemia, unspecified; I10 Essential (primary) hypertension; Z87.891 Personal history of nicotine dependence; I25.2 Old myocardial infarction; Z95.1 Presence of aortocoronary bypass graft; M81.0 Age-related osteoporosis without current pathological fracture; N40.0 Benign prostatic hyperplasia without lower urinary tract symptoms; E66.9 Obesity, unspecified; Z68.30 Body mass index [BMI] 30.0-30.9, adult; I25.10 Atherosclerotic heart disease of native coronary artery without angina pectoris; R01.1 Cardiac murmur, unspecified
CPT/HCPCS: 80053; 82310; 82962; 83605; 83735; 83880; 84100; 85025; 85610; 85730; 86850; 86900; 86901; 87086; 88307; 88331; J1940; J1170; J1650; J1815; J2250; J2370; J2405; J2543; J2710; J2765; J2795; J3010; J3475; J3480; J7040; J7999

== ENCOUNTER 2016-11-08 13:49 | Outpatient (CLI) | payer MEDICARE, OTHER ==
[~2016-11-08] VITALS: Ht 160 cm; Wt 76.4 kg
[~2016-11-08 13:49] MED LIST changes: +BISA10SU75 PR; +DOCU-216 PO; +HYDR-3498 PO
[2016-11-08 14:05] VITALS: BP 130/76; PULSE 75; RESP 18; Ht 160 cm; Wt 76.4 kg
--- NOTE | 2016-11-08 17:07 | PN ---
Date/Time of Note Date/Time of Note DATE: 11/08/16 TIME: 16:57 Assessment/Plan Assessment/Plan Assessment/Plan [facility] Progress Note Date of Service: 11/08/16 Today's Impression & Plan: Overall stable and doing well post op without major issues. No major wound problems. No indication for acute surgical intervention. Cough complaints seem to be getting better, but may need further investigation from medical standpoint. I do not believe that the patient has pneumonia or other major pulmonary process. Outpatient chest x-ray through primary care physician's office may be beneficial. Given the favorable pathology results, I do not believe that the patient will require any further adjuvant therapy and will likely not need further surveillance of his liver, but this should be discussed in a multidisciplinary. With above assessment, I've recommended the following for today: 1. Follow with PCP 2. Consider outpatient chest x-ray and other workup for cough if not better 3. Follow-up with us as needed 4. Multidisciplinary tumor board presentation 5. Consideration for oncology outpatient consultation Thank you again for your great care of this very pleasant patient and wonderful family. If there are any questions, please feel free to call me at [phone]. TOTAL VISIT TIME: 20 minutes of which more than half was spent in [id number] discussion with the patient, possibly including family, as well as coordination of care between multiple physicians and providers. Disclaimer: Inadvertent spelling or grammatical errors are likely due to EHR/ dictation software use and do not reflect on the overall quality of patient care. Updated Clinical Summary: The patient is a very pleasant 81-year-old gentleman, familiar to me from his initial visit with us at [facility] on 11/03/15, with multiple past medical history significant for fatty liver dz, intracerebral hemorrhage and old PR, s/p CABG, presenting with what appeared to be a surgically resectable L lateral segment 3.3 cm lesion in the liver in October 2015, concerning for malignancy. Patient declined surgery at that time and was lost to follow up until recently. He also adamantly refused to undergo repeat colonoscopy as part of his recommended work up. 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 D/c home 10/26/16. Final path: Hepatocellular carcinoma, moderately differentiated (grade 2/3), no lymph vascular invasion is identified, carcinoma does not involve the hepatic capsule, margins of resection are clear, and macrovesicular steatosis, mild in the adjacent hepatic parenchyma noted. Comorbidities: 1. BPH w/o urinary obstruction 2. Cardiac murmurs (systolic) 3. Decreased libido 4. DMII, w/ neuropathy 5. Fatty liver dz 6. Goiter 7. Hearing loss 8. Hyperlipidemia 9. HTN 10. Impotence 11. Intracerebral hemorrhage, 2008 12. Carotid artery occlusion w/o infarct 2001 vs. 2008 (? unclear in documentation) 13. PR/CABG 2008 14. Osteoporosis 15. Peripheral vascular dz/intermittent claudication 16. Sciatica 17. Syncope/collapse 18. Trans cereb ischemia 19. 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 HIV neg 21. Borderline obese (BMI 30.3) 22. CABG 2001 23. Prostate surgery 2006 (Dr. Santiago) 24. Cataract surgery 25. 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 D/c home 10/26/16. Final path: Hepatocellular carcinoma, moderately differentiated (grade 2/3), no lymph vascular invasion is identified, carcinoma does not involve the hepatic capsule , margins of resection are clear, and macrovesicular steatosis, mild in the adjacent hepatic parenchyma noted. Subjective: No major events or complaints since discharge except for a cough that is nonproductive and not associated with fevers or chills and seems to be improved over the last few days; no abd pain and not on pain medications; no n/v/d; no sob or cp; + flatus; + BM and normal; + activity Objective: Vitals: See below Exam: GENERAL: On exam, the patient was sitting in a chair and appeared to be comfortable and in no acute distress. ABDOMEN: Soft, nontender and nondistended. Incisions are clean, dry and intact without any evidence of obvious erythema, edema, discharge, or hernia. There are no peritoneal signs or guarding. SKIN: Skin appears to be pink and feels warm to touch. NEUROLOGIC: Patient is awake, alert, and follows commands appropriately. Exam/Review of Systems Vital Signs Vitals Vital Signs Date Time Temp Pulse Resp B/P Pulse Ox O2 Delivery O2 Flow Rate FiO2 11/08/16 14:05 98.1 75 18 130/76 96 Room Air EFREN CORTÉS M.D. Nov 08, 2016 17:07
== END 2016-11-08 16:23 | disposition home or self-care (01) ==
LOC: HPC 13:49
PROVIDERS: ATTEND Transplant Surgery
DX: R05 Cough (principal); I10 Essential (primary) hypertension; K76.0 Fatty (change of) liver, not elsewhere classified; N40.0 Benign prostatic hyperplasia without lower urinary tract symptoms; R01.1 Cardiac murmur, unspecified; R68.82 Decreased libido; E11.40 Type 2 diabetes mellitus with diabetic neuropathy, unspecified; E04.9 Nontoxic goiter, unspecified; H91.90 Unspecified hearing loss, unspecified ear; E78.5 Hyperlipidemia, unspecified; I25.2 Old myocardial infarction; Z95.1 Presence of aortocoronary bypass graft; M81.0 Age-related osteoporosis without current pathological fracture; Z87.891 Personal history of nicotine dependence; I73.9 Peripheral vascular disease, unspecified
CPT/HCPCS: G0463